=== PATIENT | female | born 1975 | race Caucasian/White ===

== ENCOUNTER 2019-10-06 20:13 | Observation (INO) | payer OTHER ==
[~2019-10-06] VITALS: Ht 162.6 cm; Wt 73.9 kg
--- NOTE | 2019-10-06 20:34 | Emergency Department Note ---
History of Present Illnes History of Present Illness Chief Complaint: Abdominal Complaints History of Present Illness This is a 43 year old female . Historian: Patient Arrival Mode: Car Onset (how long ago): hour(s) (4) Location: RUQ pain Quality: aching Radiation: Reports non-radiation Severity: moderate Onset quality: sudden Duration (how long): hour(s) (4) Timing of current episode: constant Progression: worsening Chronicity: new Context: Denies recent illness Relieving factors: none Exacerbating factors: none Associated symptoms: Reports nausea/vomiting; Denies fever/chills Treatments prior to arrival: none Past Medical/Family History Physician Review I have reviewed the patient's past medical and family history. Any updates have been documented here. Past Medical History Recent Fever: No Clinical Suspicion of Infectio: No New/Unexplained Change in Ment: No Past Surgical History: Bariatric Surgery Social History Smoking Cessation: Never Smoker Alcohol Use: None Any Illegal Drug Use: No Review of Systems Review of Systems Constitutional: Denies fever EENTM: Reports no symptoms Cardiovascular: Reports no symptoms Respiratory: Reports no symptoms Gastrointestinal: Reports abdominal pain, Reports nausea; Denies vomiting Genitourinary: Reports no symptoms Musculoskeletal: Reports no symptoms Integumentary: Reports no symptoms Neurological: Reports no symptoms Psychological: Reports no symptoms Endocrine: Reports no symptoms Hematological/Lymphatic: Reports no symptoms Physical Exam Related Data Allergies: Coded Allergies: Penicillins (Verified Allergy, Unknown, 10/06/19) Vital signs reviewed: Yes Physical Exam CONSTITUTIONAL Constitutional: Present well-developed, Present well-nourished HENT HENT: Present normocephalic, Present atraumatic, Present oropharynx clear/moist, Present nose normal HENT L/R: Present left ext ear normal, Present right ext ear normal EYES Eyes: Reports PERRL, Reports conjunctivae normal NECK Neck: Present ROM normal PULMONARY Pulmonary: Present effort normal, Present breath sounds normal CARDIOVASCULAR Cardiovascular: Present regular rhythm, Present heart sounds normal, Present capillary refill normal, Present normal rate GASTROINTESTINAL Abdominal: Present soft, Present tender (RUQ) GENITOURINARY Genitourinary: Present exam deferred SKIN Skin: Present warm, Present dry MUSCULOSKELETAL Musculoskeletal: Present ROM normal NEUROLOGICAL Neurological: Present alert, Present oriented x 3, Present no gross motor or sensory deficits PSYCHOLOGICAL Psychological: Present mood/affect normal, Present judgement normal Results Laboratory Lab results reviewed: Yes Laboratory comments Laboratory Tests Test 10/06/19 21:30 10/06/19 21:20 Human Chorionic Gonadotropin, Qual Negative (NEGATIVE) White Blood Count 9.81 x10e3/uL (4.8-10.8) Red Blood Count 3.86 x10e6/uL (3.6-5.1) Hemoglobin 7.1 g/dL (12.0-16.0) Hematocrit 25.6 % (34.2-44.1) Mean Corpuscular Volume 66.3 fL (81-99) Mean Corpuscular Hemoglobin 18.4 pg (28-32) Mean Corpuscular Hemoglobin Concent 27.7 g/dL (31-35) Red Cell Distribution Width 19.9 % (11.7-14.4) Platelet Count 471 x10e3/uL (140-360) Neutrophils (%) (Auto) 76.2 % (38.7-80.0) Lymphocytes (%) (Auto) 14.2 % (18.0-39.1) Monocytes (%) (Auto) 7.7 % (4.4-11.3) Eosinophils (%) (Auto) 0.7 % (0.0-6.0) Basophils (%) (Auto) 0.9 % (0.0-1.0) Neutrophils # (Auto) 7.5 (2.1-6.9) Lymphocytes # (Auto) 1.4 (1.0-3.2) Monocytes # (Auto) 0.8 (0.2-0.8) Eosinophils # (Auto) 0.1 (0.0-0.4) Basophils # (Auto) 0.1 (0.0-0.1) Absolute Immature Granulocyte (auto 0.03 x10e3/uL (0-0.1) Sodium Level 138 mmol/L (136-145) Potassium Level 3.6 mmol/L (3.5-5.1) Chloride Level 106 mmol/L (98-107) Carbon Dioxide Level 21 mmol/L (22-29) Anion Gap 14.6 mmol/L (8-16) Blood Urea Nitrogen 8 mg/dL (7-26) Creatinine 0.79 mg/dL (0.57-1.11) Estimat Glomerular Filtration Rate > 60 ML/MIN (60-) BUN/Creatinine Ratio 10 (6-25) Glucose Level 90 mg/dL (74-118) Calcium Level 8.8 mg/dL (8.4-10.2) Total Bilirubin 0.6 mg/dL (0.2-1.2) Aspartate Amino Transf (AST/SGOT) 133 IU/L (5-34) Alanine Aminotransferase (ALT/SGPT) 66 IU/L (0-55) Alkaline Phosphatase 189 IU/L (40-150) Creatine Kinase 29 IU/L (29-168) Creatine Kinase MB 0.20 ng/mL (0-5.0) Troponin I < 0.001 ng/mL (0-0.300) Total Protein 7.8 g/dL (6.5-8.1) Albumin 4.0 g/dL (3.5-5.0) Globulin 3.8 g/dL (2.3-3.5) Albumin/Globulin Ratio 1.1 (0.8-2.0) Lipase > 1200 U/L (8-78) Imaging Imaging results reviewed: Yes Impressions [place] [address] Patient Name: HEBERT LEW MR #: [id number] : 1975 Age/Sex: 43/F Req #: [id number] Adm Physician: Ordered by: CONSUELO BENTON DO Report #: [id number] Location: ER Room/Bed: Procedure: [id number] US/US GALLBLADDER Exam Date: 10/06/19 Exam Time: 2154 REPORT STATUS: Signed EXAM: Right Upper Quadrant Ultrasound INDICATION: ^ABD PAIN COMPARISON: None. TECHNIQUE: Transverse and longitudinal images of the right upper abdomen were obtained. FINDINGS: Liver: Size: 13.3 cm in the right midclavicular line, normal Appearance: Normal echogenicity, smooth contour Mass: No focal masses Gallbladder: Stones/Sludge: Cholelithiasis Wall: 0.3 cm Appearance: No pericholecystic fluid or hydrops. Sonographic Stoddard's Sign: Negative Bile Ducts: Intrahepatic Ducts: No dilatation Extrahepatic Ducts: Common bile duct measures 0.5 cm, no dilatation Pancreas: Visualized portions of the pancreatic head, neck and proximal body are normal. Right Kidney: Size: 10.5 cm Echogenicity: Normal Parenchymal thickness: Normal Collecting system: No hydronephrosis Stones: None Cyst/Mass: None Vessels: Aorta: Visualized portions are normal Inferior Vena Cava: Visualized portions are normal Main portal vein: Normal size and flow direction. Free Fluid: No ascites or pleural effusion IMPRESSION: Cholelithiasis. No evidence of acute cholecystitis. Signed by: Brent Mota MD on 10/06/2019 11:53 PM Dictated By: BRENT MOTA MD [id number] Transcribed By: MAGDA on 10/06/19 4031 COPY TO: CONSUELO BENTON DO~ Assessment & Plan Medical Decision Making MDM 43 yof presents with abdominal pain. CBC, CMP, EKG, , cardiac enzymes, UA and CTS ordered to r/o appendicitis, Acute coronary syndrome, COVID-19 infection diverticulitis, UTI, kidney stone, perforated viscus, obstruction, ischemia, and biliary pathology Assessment & Plan Final Impression: (1) Pancreatitis (2) Transaminitis (3) Anemia (4) Cholelithiasis Depart Disposition: ADMITTED Last Vital Signs Date Time Temp Pulse Resp B/P (MAP) Pulse Ox O2 Delivery O2 Flow Rate FiO2 10/06/19 22:45 67 16 117/67 100 Room Air 10/06/19 20:56 97.8 Medications in the ED Sodium Chloride 1,000 ml @ 0 mls/hr Q0M STAT IV Last administered on 10/06/19at 21:47; Admin Dose 999 MLS/HR; Start 10/06/19 at 21:04; Stop 10/06/19 at 21:05; Status DC Morphine Sulfate 4 mg ONCE IV Last administered on 10/06/19at 21:47; Admin Dose 4 MG; Start 10/06/19 at 21:15; Stop 10/06/19 at 22:59; Status DC Ondansetron HCl 4 mg ONCE IV Last administered on 10/06/19at 21:47; Admin Dose 4 MG; Start 10/06/19 at 21:15; Stop 10/06/19 at 22:59; Status DC CONSUELO BENTON DO Oct 06, 2019 20:34
[2019-10-06] MEDS ORDERED: SODIUM CHLORIDE 0.9% 1000ML 1,000 ML IV STA (21:04)
[2019-10-06] MEDS ORDERED: MORPHINE SULFATE INJ 4 MG/ML INJ 1ML IV NR (21:15)
[2019-10-06] MEDS ORDERED: ONDANSETRON HCL INJ 2MG/ML 2ML 2 MG/ML VIAL IV NR (21:15)
[2019-10-06 22:08] LABS: BASOPHILS # (AUTO) 0.1 (0.0-0.1); BASOPHILS % 0.9 % (0.0-1.0); EOSINOPHILS # (AUTO) 0.1 (0.0-0.4); EOSINOPHILS % 0.7 % (0.0-6.0); HEMATOCRIT 25.6 % (34.2-44.1); HEMOGLOBIN 7.1 g/dL (12.0-16.0); LYMPHOCYTES # (AUTO) 1.4 (1.0-3.2); LYMPHOCYTES % 14.2 % (18.0-39.1); MEAN CORPUSCULAR HEMOGLOBIN 18.4 pg (28-32); MEAN CORPUSCULAR HGB CONC 27.7 g/dL (31-35); MEAN CORPUSCULAR VOLUME 66.3 fL (81-99); MONOCYTES # (AUTO) 0.8 (0.2-0.8); MONOCYTES % 7.7 % (4.4-11.3); NEUTROPHILS # (AUTO) 7.5 (2.1-6.9); NEUTROPHILS % 76.2 % (38.7-80.0); PLATELET COUNT 471 x10e3/uL (140-360); RED BLOOD COUNT 3.86 x10e6/uL (3.6-5.1); RED CELL DISTRIBUTION WIDTH 19.9 % (11.7-14.4)
[2019-10-06 22:23] LABS: ALANINE AMINOTRANSFERASE 66 IU/L (0-55); ALBUMIN/GLOBULIN RATIO 1.1 (0.8-2.0); ALKALINE PHOSPHATASE 189 IU/L (40-150); ANION GAP 14.6 mmol/L (8-16); BLOOD UREA NITROGEN 8 mg/dL (7-26); BUN/CREATININE RATIO 10 (6-25); CALCIUM 8.8 mg/dL (8.4-10.2); CARBON DIOXIDE 21 mmol/L (22-29); CHLORIDE 106 mmol/L (98-107); CREATINE KINASE 29 IU/L (29-168); CREATININE, SERUM 0.79 mg/dL (0.57-1.11); EST GLOMERULAR FILTRATION RATE > 60 ML/MIN (60-); GLUCOSE 90 mg/dL (74-118); POTASSIUM 3.6 mmol/L (3.5-5.1); SODIUM 138 mmol/L (136-145)
--- NOTE | 2019-10-06 22:24 | NUR ---
u.s tech in room at this time
--- NOTE | 2019-10-06 23:02 | NUR ---
reported off to simon aragon rn for continuity of care.
--- NOTE | 2019-10-06 23:56 | Diagnostic Imaging Report ---
EXAM: Right Upper Quadrant Ultrasound INDICATION: ^ABD PAIN COMPARISON: None. TECHNIQUE: Transverse and longitudinal images of the right upper abdomen were obtained. FINDINGS: Liver: Size: 13.3 cm in the right midclavicular line, normal Appearance: Normal echogenicity, smooth contour Mass: No focal masses Gallbladder: Stones/Sludge: Cholelithiasis Wall: 0.3 cm Appearance: No pericholecystic fluid or hydrops. Sonographic Stodadrd's Sign: Negative Bile Ducts: Intrahepatic Ducts: No dilatation Extrahepatic Ducts: Common bile duct measures 0.5 cm, no dilatation Pancreas: Visualized portions of the pancreatic head, neck and proximal body are normal. Right Kidney: Size: 10.5 cm Echogenicity: Normal Parenchymal thickness: Normal Collecting system: No hydronephrosis Stones: None Cyst/Mass: None Vessels: Aorta: Visualized portions are normal Inferior Vena Cava: Visualized portions are normal Main portal vein: Normal size and flow direction. Free Fluid: No ascites or pleural effusion IMPRESSION: Cholelithiasis. No evidence of acute cholecystitis. Signed by: Miguel Meléndez MD on 10/06/2019 11:53 PM
[2019-10-07] VITALS (9 sets, daily range): BP systolic 105–130; BP diastolic 64–84
[2019-10-07] MEDS ORDERED: SODIUM CHLORIDE 0.9% 250ML 250 ML IV ONE (00:15)
[2019-10-07] MEDS ORDERED: ONDANSETRON HCL INJ 2MG/ML 2ML 2 MG/ML VIAL IV PRN (00:15)
[2019-10-07] MEDS ORDERED: SODIUM CHLORIDE 0.9% 1000ML 1,000 ML IV SCH (00:15)
[2019-10-07] MEDS ORDERED: CIPROFLOXACIN 400 MG/D5W 200ML 200 ML IV SCH ×2 (00:16→12:30)
[2019-10-07] MEDS ORDERED: MORPHINE SULFATE INJ 4 MG/ML INJ 1ML IV PRN (00:30)
[2019-10-07 00:41] LABS: LIPASE > 1200 U/L (8-78)
--- OUTSIDE RECORDS SUMMARY | 2019-10-07 00:46 | XMS REPORT | Continuity of Care Document ---
Author Author [facility] Organization [facility] Address [address] [place] [id number] Phone Unavailable Care Team Providers Care Food General Manager Name Role Phone CONSUELO BENTON Unavailable Problems This patient has no known problems. Allergies, Adverse Reactions, Alerts This patient has no known allergies or adverse reactions. Medications This patient has no known medications. Procedures This patient has no known procedures. Results Test Description Test Time Test Comments Results Result Comments Source US GALLBLADDER 2019-10-06 23:31:00 [facility] [address] [address] Patient Name: HEBERT LEW MR #: [id number] : 1975 Age/Sex: 43/F Req #: [id number] Adm Physician: Ordered by: CONSUELO BENTON DO Report #: [id number] Location: ER Room/Bed: Procedure: [id number] US/US GALLBLADDER Exam Date: 10/06/19 Exam Time: 2154 REPORT STATUS: Signed EXAM: Right Upper Quadrant Ultrasound INDICATION: ABD PAIN COMPARISON: None. TECHNIQUE: Transverse and longitudinal images of the right upper abdomen were obtained. FINDINGS: Liver: Size: 13.3 cm in the right midclavicular line, normal Appearance: Normal echogenicity, smooth contour Mass: No focal masses Gallbladder: Stones/Sludge: Cholelithiasis Wall: 0.3 cm Appearance: No pericholecystic fluid or hydrops. Sonographic Stoddard's Sign: Negative Bile Ducts: Intrahepatic Ducts: No dilatation Extrahepatic Ducts: Common bile duct measures 0.5 cm, no dilatation Pancreas: Visualized portions of the pancreatic head, neck and proximal body are normal. Right Kidney: Size: 10.5 cm Echogenicity: Normal Parenchymal thickness: Normal Collecting system: No hydronephrosis Stones: None Cyst/Mass: None Vessels: Aorta: Visualized portions are normal Inferior Vena Cava: Visualized portions are normal Main portal vein: Normal size and flow direction. Free Fluid: No ascites or pleural effusion IMPRESSION: Cholelithiasis. No evidence of acute cholecystitis. Signed by: Brent Mota MD on 10/06/2019 11:53 PM Dictated By: BRENT MOTA MD [id number] Transcribed By: MAGDA on 10/06/19 2316 COPY TO: CONSUELO BENTON DO
[2019-10-07] MEDS ORDERED: PANTOPRAZOLE 40 MG 10ML VIAL IV STA (02:17)
[2019-10-07] MEDS ORDERED: SODIUM CHLORIDE 0.9% 50ML 50 ML ONE (02:59)
[2019-10-07] MEDS ORDERED: PANTOPRAZOLE 40 MG 10ML VIAL ONE (02:59)
[2019-10-07] MEDS: PANTOPRAZOLE INJ 40 MG in SODIUM CHLORIDE 0.9% 50ML 50 ML IV SCH ×5 (03:50→22:30)
[2019-10-07 04:15] LABS: % IRON SATURATION 3 % (15-50); IRON 13 ug/dL (50-170); TOTAL IRON BINDING CAPACITY 437 ug/dL (261-478); TRANSFERRIN 312 mg/dL (180-382)
[2019-10-07] MEDS ORDERED: SODIUM CHLORIDE 0.9% 250ML 250 ML ONE (04:55)
[2019-10-07 06:09] LABS: PHENCYCLIDINE SCREEN,URINE NEGATIVE (NEGATIVE)
[2019-10-07 06:10] LABS: AMPHETAMINES SCREEN,URINE POSITIVE (NEGATIVE); BENZODIAZEPINES SCREEN,URINE NEGATIVE (NEGATIVE)
[2019-10-07 06:26] LABS: BILIRUBIN,URINE SMALL (NEGATIVE); CLARITY,URINE CLEAR (CLEAR); COLOR,URINE YELLOW (YELLOW); KETONES,URINE NEGATIVE (NEGATIVE); LEUKOCYTE ESTERASE ,URINE NEGATIVE (NEGATIVE); NITRITE,URINE NEGATIVE (NEGATIVE); PROTEIN,URINE DIPSTICK NEGATIVE (NEGATIVE); URINE UROBILINOGEN 0.2 mg/dL (0.2 - 1)
[2019-10-07 06:31] LABS: BACTERIA,URINE MODERATE /HPF; EPITHELIAL CELLS,URINE FEW /LPF; WBC,URINE (MAN) 0-5 /HPF (0-5)
[2019-10-07] MEDS ORDERED: HYDRALAZINE HCL 20 MG/ML VIAL IV PRN (15:15)
[2019-10-07] MEDS: IRON SUCROSE 100 MG in SODIUM CHLORIDE 0.9% 100 ML 100 ML IV SCH (18:17)
[2019-10-07] MEDS: LACTATED RINGER'S 1,000 ML INJ SCH ×2 (19:46→23:30)
[2019-10-07] MEDS ORDERED: CYANOCOBALAMIN INJ 1,000 MCG/ML VIAL IM SCH (21:30)
--- NOTE | 2019-10-07 22:15 | History and Physical ---
CONSULTING PHYSICIAN: Kannan Prado MD PRIMARY CARE PHYSICIAN: She does not have a primary care physician. CHIEF COMPLAINT: Abdominal pain. HISTORY OF PRESENT ILLNESS: The patient is a 43-year-old female who presented to the emergency department with left upper quadrant and right upper quadrant abdominal pain of 4 hours' duration, radiating to the back. The patient states about 4 years ago, she had a similar pain, went to the emergency room and was told it was gas and was sent home. She denies any sick contacts or being around anyone with COVID-19 that she knows of. PAST MEDICAL HISTORY: GERD, "off and on." PAST SURGICAL HISTORY: Gastric bypass, , tonsillectomy and adenoidectomy, sinus surgery and skin graft. FAMILY HISTORY: Father had hypertension. SOCIAL HISTORY: The patient denies any history of tobacco or illicit drug use. She drinks alcohol rarely socially. She lives with her and son. She works in sales. ALLERGIES: PENICILLIN. HOME MEDICATIONS: None. REVIEW OF SYSTEMS: The patient denies any significant weight loss or weight gain lately. No chills. No fever. No problems with ears, eyes, nose, or throat except for some congestion in her nose for the past few months. Denies shortness of breath, cough, phlegm, difficulty urinating, psychiatric history, rash or skin problem, chest pain, palpitations, headache, dizziness, bleeding or bruising. Her last BM was 08/04 in the morning. She denies any current abdominal pain. Her last menstrual period was about a month ago. She did have some back pain yesterday, which has resolved. She denies any known history of borderline diabetes or diabetes. PHYSICAL EXAMINATION: VITAL SIGNS: Temperature 98.0, afebrile, pulse 57, blood pressure 105/69, respirations 16, oxygen saturation 100% on room air. Height 5 feet 4 inches, weight 150 pounds. BMI 25.74. GENERAL: Supine in bed. No acute distress. LUNGS: Clear to auscultation. Respiratory pattern even and unlabored. No supplemental oxygen use. HEENT: EOMI. NECK: Supple. No JVD. CARDIOVASCULAR: Regular rate and rhythm. No murmur. She has normal saline infusing at 125 mL an hour into her peripheral IV. She has Protonix drip. ABDOMEN: Bowel sounds positive. Soft, nontender. No guarding. EXTREMITIES: With no pitting edema. No clubbing, cyanosis, or marked swelling. No signs of DVT. NEUROLOGICAL: GCS 15. Nonfocal. LABORATORY DATA: WBC is 9.81, hemoglobin 7.1, hematocrit 25.6, platelets 471. Sodium 138, potassium 3.6, chloride 106, CO2 of 21, anion gap 14.6, BUN 8, creatinine 0.79, estimated GFR greater than 60. Glucose 90, calcium 8.8. Iron low at 13, TIBC 437, percent saturation 3, transferrin 312, folate pending. Vitamin B12 of 232. Total bilirubin 0.6, AST 133, ALT 66, alkaline phosphatase 189. Creatine kinase 29, CK-MB 0.2. Troponin I less than 0.001. Total protein 7.8 and albumin 4.0. Urinalysis essentially negative, moderate amount of bacteria in the urine. UDS positive for opiates and amphetamines. Ethyl alcohol less than 10. Coronavirus PCR collected 10/06 is pending. Urine cultures pending. Gallbladder ultrasound done 10/05 showed cholelithiasis without acute cholecystitis. Her lipase was greater than 1200. ESR 33. ASSESSMENT AND PLAN: 1. Acute pancreatitis. Lipase greater than 1200. We will continue to follow up on lipase levels. Change normal saline to lactated Ringer's at 125 mL an hour. Keep the patient n.p.o. Dr. Prado with Gastroenterology has been consulted. We will likely see the patient later on tonight. 2. Transaminitis. AST 133, ALT 66, alkaline phosphatase 189. Continue to monitor and trend results. 3. Anemia with iron deficiency. We will check fecal occult blood test, give iron sucrose. She had 2 units of blood earlier today. Follow H and H. 4. Cholelithiasis. We will discuss case further with Dr. Prado and determine if he wants additional testing currently. No surgeon on the case. History and physical. Billing code [id number]. Time spent 60 minutes. Dictated by Robert Merino NP MD [facility]der[facility]/MODL /[id number]
[2019-10-08] VITALS (10 sets, daily range): BP systolic 96–135; BP diastolic 52–82
[2019-10-08] MEDS: PANTOPRAZOLE INJ 40 MG in SODIUM CHLORIDE 0.9% 50ML 50 ML IV SCH ×3 (00:59→13:30)
[2019-10-08 01:00] LABS: HEMATOCRIT 27.3 % (34.2-44.1); HEMOGLOBIN 8.1 g/dL (12.0-16.0)
[2019-10-08] MEDS ORDERED: CIPROFLOXACIN 400 MG/D5W 200ML 200 ML IV SCH (05:00)
[2019-10-08] MEDS: LACTATED RINGER'S 1,000 ML INJ SCH ×2 (06:05→15:30)
[2019-10-08 06:24] LABS: CHOL/HDL RATIO 3.1 (3.0-3.6); MAGNESIUM 1.7 MG/DL (1.3-2.1); PHOSPHORUS 3.3 MG/DL (2.3-4.7)
[2019-10-08 06:44] LABS: THYROID STIMULATING HORMONE 6.117 uIU/mL (0.350-4.940)
[2019-10-08 08:54] LABS: BASOPHILS # (AUTO) 0.1 (0.0-0.1); BASOPHILS % 0.8 % (0.0-1.0); EOSINOPHILS # (AUTO) 0.3 (0.0-0.4); HEMATOCRIT 27.3 % (34.2-44.1); HEMOGLOBIN 8.1 g/dL (12.0-16.0); LYMPHOCYTES # (AUTO) 2.2 (1.0-3.2); LYMPHOCYTES % 28.9 % (18.0-39.1); MEAN CORPUSCULAR HEMOGLOBIN 21.3 pg (28-32); MEAN CORPUSCULAR HGB CONC 29.7 g/dL (31-35); MEAN CORPUSCULAR VOLUME 71.8 fL (81-99); MONOCYTES # (AUTO) 0.7 (0.2-0.8); MONOCYTES % 9.6 % (4.4-11.3); NEUTROPHILS # (AUTO) 4.2 (2.1-6.9); NEUTROPHILS % 56.4 % (38.7-80.0); PLATELET COUNT 289 x10e3/uL (140-360); RED CELL DISTRIBUTION WIDTH 23.5 % (11.7-14.4)
[2019-10-08] MEDS ORDERED: CYANOCOBALAMIN INJ 1,000 MCG/ML VIAL IM SCH (09:00)
[2019-10-08 09:08] LABS: ALANINE AMINOTRANSFERASE 87 IU/L (0-55); ALBUMIN 2.9 g/dL (3.5-5.0); ALBUMIN/GLOBULIN RATIO 1.1 (0.8-2.0); ALKALINE PHOSPHATASE 136 IU/L (40-150); ANION GAP 10.6 mmol/L (8-16); BLOOD UREA NITROGEN 9 mg/dL (7-26); BUN/CREATININE RATIO 12 (6-25); CALCIUM 8.2 mg/dL (8.4-10.2); CARBON DIOXIDE 19 mmol/L (22-29); CHLORIDE 111 mmol/L (98-107); CREATININE, SERUM 0.76 mg/dL (0.57-1.11); EST GLOMERULAR FILTRATION RATE > 60 ML/MIN (60-); GLUCOSE 78 mg/dL (74-118); POTASSIUM 3.6 mmol/L (3.5-5.1); SODIUM 137 mmol/L (136-145)
[2019-10-08] MEDS ORDERED: GADOBENATE DIMEGLUMINE 1 ML IV ONE (09:26)
[2019-10-08] MEDS ORDERED: SODIUM CHLORIDE 0.9% 100 ML ONE (09:26)
[2019-10-08 09:39] LABS: BILIRUBIN,DIRECT 0.3 mg/dL (0.0-0.5)
--- NOTE | 2019-10-08 12:06 | Diagnostic Imaging Report ---
EXAM: MRI of the abdomen with and without contrast with MRCP INDICATION: Pancreatitis. COMPARISON: Right upper quadrant ultrasound 10/05/2018. TECHNIQUE: Multiplanar and multisequence imaging was performed of the abdomen. T1 and T2-weighted images were obtained with and without contrast. T1-weighted in and [id number] , Dynamic, post gadolinium T1-weighted spoiled gradient echo scans. 14 cc of gadolinium were administered intravenously. M.R.C.P. technique: Multiplanar, multisequence MRCP was performed, with sequences including coronal turbo spin-echo T1-weighted scans, [facility] MRCP scans, coronal spin, [facility] 2[facility], [facility] MRCP FOLEY. Discussion: LOWER THORAX: Dependent bibasilar atelectasis. HEPATOBILIARY: Liver is isointense on both in and opposed phase images. Indeterminate 5 mm hypoenhancing focus within segment 7 of liver No biliary ductal dilation. GALLBLADDER: Gallbladder is distended containing sludge and calculi. There is silvestre cholecystectomy edema. SPLEEN: No splenomegaly. The superior aspect of the spleen there is a T2 hyperintense lesion measuring 2.5 cm which demonstrates delayed enhancement on the postcontrast images likely representing benign hemangioma. PANCREAS: Pancreas demonstrates normal T1 signal intensity and enhancement. No significant peripancreatic edema. No focal masses or ductal dilatation. ADRENALS: No adrenal nodules KIDNEYS/URETERS: Kidneys enhance symmetrically. No hydronephrosis. No cystic or solid mass lesions. No stones. GI TRACT: No abnormal distention, wall thickening, or evidence of bowel obstruction. There is a small hiatal hernia. LYMPH NODES: No lymphadenopathy. VESSELS: Unremarkable. Portal vein, splenic veins and superior mesenteric vein are patent. PERITONEUM / RETROPERITONEUM: There is trace perihepatic free fluid. BONES: Unremarkable. SOFT TISSUES: Unremarkable. IMPRESSION: Cholelithiasis with pericholecystic edema concerning for acute cholecystitis. No biliary ductal dilation or filling defect in the common bile duct to suggest choledocholithiasis. No MRI findings of acute or chronic pancreatitis. Signed by: Bakari Leahy MD on 10/08/2019 12:03 PM
[2019-10-08 14:52] LABS: BASOPHILS # (AUTO) 0.1 (0.0-0.1); BASOPHILS % 0.8 % (0.0-1.0); EOSINOPHILS # (AUTO) 0.2 (0.0-0.4); EOSINOPHILS % 2.9 % (0.0-6.0); HEMATOCRIT 29.9 % (34.2-44.1); HEMOGLOBIN 8.7 g/dL (12.0-16.0); LYMPHOCYTES # (AUTO) 1.6 (1.0-3.2); LYMPHOCYTES % 20.4 % (18.0-39.1); MEAN CORPUSCULAR HGB CONC 29.1 g/dL (31-35); MEAN CORPUSCULAR VOLUME 72.2 fL (81-99); MONOCYTES # (AUTO) 0.6 (0.2-0.8); MONOCYTES % 8.2 % (4.4-11.3); NEUTROPHILS # (AUTO) 5.2 (2.1-6.9); NEUTROPHILS % 67.3 % (38.7-80.0); PLATELET COUNT 304 x10e3/uL (140-360); RED BLOOD COUNT 4.14 x10e6/uL (3.6-5.1); RED CELL DISTRIBUTION WIDTH 23.6 % (11.7-14.4)
[2019-10-08 15:00] LABS: ALANINE AMINOTRANSFERASE 85 IU/L (0-55); ALBUMIN 3.3 g/dL (3.5-5.0); ALBUMIN/GLOBULIN RATIO 1.1 (0.8-2.0); ALKALINE PHOSPHATASE 148 IU/L (40-150); ANION GAP 10.7 mmol/L (8-16); BLOOD UREA NITROGEN 9 mg/dL (7-26); BUN/CREATININE RATIO 12 (6-25); CALCIUM 8.9 mg/dL (8.4-10.2); CARBON DIOXIDE 20 mmol/L (22-29); CHLORIDE 110 mmol/L (98-107); CREATININE, SERUM 0.76 mg/dL (0.57-1.11); EST GLOMERULAR FILTRATION RATE > 60 ML/MIN (60-); GLUCOSE 76 mg/dL (74-118); POTASSIUM 3.7 mmol/L (3.5-5.1); SODIUM 137 mmol/L (136-145)
[2019-10-08] MEDS ORDERED: PROPOFOL IV EMULSION 10 MG/ML 20 ML VIAL ONE (15:19)
--- NOTE | 2019-10-08 16:55 | NUR ---
Received patient patient from PACU patient is s/p EGD she is in bed alert and oriented x4, verbalizing needs, room air. Complained of headache, 4/10 on pain scale. will feed patient full liquid diet per Dr. Julio C Prado's orders. Bed in low position, breaks on will continue to monitor.
--- NOTE | 2019-10-08 17:05 | Operative Report ---
DATE OF PROCEDURE: 10/08/2019 SURGEON: Kannan Prado MD PROCEDURE: EGD with biopsies. INDICATIONS FOR PROCEDURE: Upper abdominal pain, iron deficiency anemia. MEDICATIONS: The patient was done under MAC, please see anesthesiologist's note. PROCEDURE IN DETAIL: With the patient in left lateral decubitus position, a flexible fiberoptic Olympus gastroscope was introduced into the esophagus under direct visualization without any difficulty. The esophagus appeared to be within normal limits. The scope was then advanced with ease into the stomach and the patient apparently is status post gastric sleeve. Mucosa overlying the body and the antrum revealed some diffuse erythema and moderate edema, and biopsies were obtained, sent to stain for H. pylori. Pylorus was of normal contour and shape, it was intubated with ease and the scope was advanced all the way to the second portion of the duodenum. Biopsies were obtained from the proximal second portion and the duodenal bulb to rule out sprue. The scope was then withdrawn back into the stomach and it was then retroflexed and postoperative changes were noted. The scope was then straightened out, it was subsequently withdrawn. The patient tolerated the procedure well. IMPRESSION: 1. Normal esophagus. 2. Status post gastric sleeve. Gastritis, biopsies obtained and sent to stain for H. pylori. 3. Rule out sprue. PLAN: 1. Follow up histology. 2. Initiate Protonix 40 mg one p.o. q.a.m. a.c. Kannan Prado MD [facility]/MODL /[id number] cc: Bartolo Vázquez MD
[2019-10-08] MEDS ORDERED: VITAMIN B-121000 MCG PO (17:52)
[2019-10-08] MEDS ORDERED: FERROUS SULFAT325 MG PO (17:52)
[2019-10-08] MEDS ORDERED: PROTONIX40 MG PO (17:52)
[2019-10-08] MEDS: IRON SUCROSE 100 MG in SODIUM CHLORIDE 0.9% 100 ML 100 ML IV SCH (18:00)
[2019-10-08] MEDS ORDERED: LEVOTHYROXINE50 MCG PO (18:21)
--- NOTE | 2019-10-08 18:57 | NUR ---
Patient discharged home verbalized understanding of D/C instructions.
--- NOTE | 2019-10-08 20:16 | Discharge Summary ---
PCP: She does not have a PCP. CONSULTING PHYSICIANS: Dr. Kannan Prado and Dr. Eubanks with Surgery. CHIEF COMPLAINT: Abdominal pain. HISTORY: The patient is a 43-year-old female, who presented to the emergency department with left upper quadrant and right upper quadrant abdominal pain of 4 hours' duration, radiating to the back. The patient states about 4 years ago, she had similar pain, went to the emergency department, was told it was gas and was sent home. She denied any sick contacts or being around anyone with COVID-19 that she knows of prior to arrival to the hospital. Please see H and P for past medical history, surgical history, family history, social history. ALLERGIES: SHE DOES HAVE AN ALLERGY TO PENICILLIN. ADMITTING DIAGNOSES: 1. Acute pancreatitis. 2. Transaminitis. 3. Anemia with iron deficiency. 4. Cholelithiasis. DISCHARGE DIAGNOSES: 1. Gallstone pancreatitis, status post EGD and MRCP. 2. Acute cholecystitis and cholelithiasis. 3. Anemia with deficiencies of iron and vitamin B12. 4. Transaminitis. 5. Gastroesophageal reflux disease. 6. Hypothyroidism. HOSPITAL COURSE: Please see H and P for admitting laboratory data. Gallbladder ultrasound done on 10/05 showed cholelithiasis without acute cholecystitis; however, patient underwent MRCP, which did show acute cholecystitis as well as cholelithiasis. Surgeon is aware. Her lipase had been 1200 and ESR 33. Her lipase has come down nicely to 108. Her hemoglobin A1c 5.0%. TSH 6.117, for which we have started her on levothyroxine 50 mcg p.o. daily. Her FOBT was positive. On 10/06, COVID test pending. EGD showed gastritis. Thus, the patient may have cholecystectomy on an outpatient basis later. She is slated to have a colonoscopy on an outpatient basis with Dr. Prado. The patient is to follow up with both Dr. Prado and Dr. Eubanks post discharge. She has been tolerating a full liquid diet well and has started eating a GI soft diet without any problems. I have instructed her to avoid fast food and fatty foods. She has been eating some today. No nausea, vomiting, diarrhea present. One loose stool this morning prior to her EGD. The patient will be sent home on a GI soft diet. No fatty foods. No spicy foods. Activity level as tolerated. Establish and follow up with the PCP in 1 to 2 weeks. Vital signs today temperature 98.1, heart rate 59, blood pressure 107/69, respirations 16, oxygen saturation 100%. laboratory data today; WBC is 7.51, hemoglobin improved from 8.1 to 8.7, and hematocrit improved to 29.9. Chemistry within normal limits with sodium 137, potassium 3.6, chloride 111, CO2 of 19, BUN 9, creatinine 0.76, estimated GFR greater than 60, glucose 78. Dictated by Robert Merino NP MD [facility]/MODL /[id number]
== END 2019-10-08 19:00 | disposition home or self-care (01) ==
LOC: ER 20:32 → ERHOLD 10-07 00:09 → IMCU 10-07 02:33
PROVIDERS: ADMIT Internal Medicine; ATTEND Internal Medicine
DX: K85.10 Biliary acute pancreatitis without necrosis or infection (principal); K80.00 Calculus of gallbladder with acute cholecystitis without obstruction; R74.0 Nonspecific elevation of levels of transaminase and lactic acid dehydrogenase [LDH]; D50.9 Iron deficiency anemia, unspecified; K21.9 Gastro-esophageal reflux disease without esophagitis; Z82.49 Family history of ischemic heart disease and other diseases of the circulatory system; Z98.84 Bariatric surgery status; Z88.0 Allergy status to penicillin; K29.70 Gastritis, unspecified, without bleeding; D51.1 Vitamin B12 deficiency anemia due to selective vitamin B12 malabsorption with proteinuria; E03.9 Hypothyroidism, unspecified; Z91.013 Allergy to seafood; K29.80 Duodenitis without bleeding; Z11.59 Encounter for screening for other viral diseases
CPT/HCPCS: 36415 ×2; 43239; 74183; 76705; 80053 ×2; 80061; 80307; 80320; 81001; 82150; 82248; 82270; 82550; 82553; 82607; 82746; 83036; 83540; 83690 ×2; 83735; 84100; 84443; 84466; 84484; 84702; 85014 ×2; 85018 ×2; 85025 ×2; 85045; 85651; 86850; 86900; 86920; 87086; 88305; 88312; 93005; 99285; C9113 ×2; G0378 ×2; J0744 ×2; J1756 ×2; J2270 ×2; J2405; J2704; J3420; J7030 ×2; J7050 ×2; J7121 ×2; P9016; U0002